=== PATIENT | male | born 1955 | race Caucasian/White ===

== ENCOUNTER → 2016-04-29 | Outpatient (CLI) | payer OTHER ==
[~2016-04-29] MED LIST: ASPIR 8181 MG PO; ATORVASTATIN CA40 MG PO; CENTRUM SILVER1 EAC2 PO; FERREX 150 PLU1 EAC1 PO; LISINOPRIL2.5 MG PO; LOPRESSOR25 PO; MAGNESIUM OXID400 MG PO; NASACORT10.8 ML NS; ONDANSETRON HCL4 M2 PO; PROBIOTIC1 EAC1 PO; TOPROL XL25 MG PO; VENTOLIN HFA 1818 GM INH; ZYRTEC10 MG PO
--- NOTE | ~2016-04-29 | 2DMMODE ---
[facility] [place] [address] 2 D/M-MODE ECHOCARDIOGRAM Name: DIRK ELLIOTT Room #: REG CL Clara#: [id number] Admission: 04/29/16 Attend Phys: Rolf Gordon MD Discharge: Date of : 59 Date of Service: 04/29/16 1319 Report #: [id number] THIS REPORT FOR: //name// Transthoracic Echocardiography Ordering physician: Rolf Gordon Referring physician: Nunu Stoner M.D., F.A.C.C. Rolf Gordon Turnstile Collector: ALLEN Barroso Indications/History: CAD. BP: 122 / HR: 59bpm Height: 67in Weight: 169.6lb 86 Study data: M-mode, complete 2D, complete spectral Doppler, and color Doppler. Location: Echo laboratory. Routine. Image quality was good. 2D measurements Normal Normal LVID ED 49.7mm 36-57 IVS ED 10.4mm 6-11 LVID ES 36.9mm 23-40 LVPW ED 10.1mm 6-11 LA volume 37ml/m2 16-28 AoRoot diam 29.5mm 21-37 index ED LVOT diameter 21mm 18-23 Findings: Left ventricle: The cavity size was normal. Wall thickness was normal. Systolic function was normal. The estimated ejection fraction was in the range of 55% to 60%. Regional wall motion abnormalities: Hypokinesis of the basal inferior myocardium. Right ventricle: The cavity size was normal. Systolic function was normal. Right atrium: The atrium was normal in size. Left atrium: The atrium was mildly dilated. Volume index: 37ml/m2 (S). Aortic valve: Structurally normal valve. [place]. [address] [address] 2 D/M-MODE ECHOCARDIOGRAM Name: DIRK ELLIOTT Room #: REG ADAMARIS Avila#: [id number] Admission: 04/29/16 Attend Phys: Rolf Gordon MD Discharge: Date of : 59 Date of Service: 04/29/16 1319 Report #: [id number] Doppler: There was no stenosis. No regurgitation. Peak velocity: 148cm/s (S). Mitral valve: Structurally normal valve. Doppler: There was no evidence for stenosis. Mild regurgitation. Peak E-wave velocity: 117.1cm/s. Peak gradient: 5.5mm Hg (D). Peak A-wave velocity: 99.3cm/s. Tricuspid valve: Structurally normal valve. Doppler: There was no evidence for stenosis. Mild regurgitation. Regurgitant peak velocity: 255.9cm/s. Peak RV-RA gradient: 26mm Hg (S). Pulmonic valve: Structurally normal valve. Doppler: There was no evidence for stenosis. Trivial regurgitation. Pericardium: There was no pericardial effusion. Aorta: Aortic root: The aortic root was normal in size. Pulmonary artery: Systolic pressure was estimated to be 31mm Hg. Diastolic function: Normal diastolic function. Systemic veins: Inferior vena cava: The vessel was normal in size; the respirophasic diameter changes were in the normal range (= 50%). Conclusions 1. Left ventricle: Systolic function was normal. The estimated ejection fraction was in the range of 55% to 60%. 2. Regional wall motion abnormality: Hypokinesis of the basal inferior myocardium. 3. Aortic valve: There was no stenosis. No regurgitation. 4. Mitral valve: Mild regurgitation. <ELECTRONICALLY SIGNED> By: Norbert Larry MD, [facility] 04/29/16 144 1319 144 Norbert Larry MD, [facility] /jacob
== END ==
LOC: ULTRA 13:02
DX: Z01.818 Encounter for other preprocedural examination (principal); Z95.1 Presence of aortocoronary bypass graft

== ENCOUNTER 2016-05-02 06:18 | Inpatient (IN) | payer OTHER ==
[2016-04-29 09:31] LABS: HEMATOCRIT 42.9 % (42.0-52.0); HEMOGLOBIN 14.7 gm/dL (14.0-18.0); MCH 29.8 pg (26.0-34.0); MCHC 34.2 % (28.0-37.0); MCV 87.2 fL (80.0-100.0); RBC 4.92 mil/uL (4.50-6.00); RDW 13.7 % (10.5-14.5); WBC 8.2 thou/uL (4.0-11.0)
[2016-04-29 09:33] LABS: URINE BILIRUBIN NEGATIVE (Negative); URINE BLOOD NEGATIVE (Negative); URINE COLOR YELLOW; URINE GLUCOSE-RANDOM* NEGATIVE (Negative); URINE KETONES NEGATIVE (Negative); URINE LEUKOCYTES-REFLEX TRACE (Negative); URINE PROTEIN (DIPSTICK) NEGATIVE (Negative); URINE SPECIFIC GRAVITY <= 1.005 (1.003-1.035); URINE UROBILINOGEN 0.2 E.U./dl (0.2-1.0)
[2016-04-29 09:40] LABS: CALCIUM 8.7 mg/dL (8.5-10.1); CREATININE 0.9 mg/dL (0.6-1.3); POTASSIUM 4.7 mmol/L (3.5-5.1)
[2016-04-29 09:48] LABS: APTT 26.1 Seconds (24.5-32.8); PROTIME 10.7 Seconds (9.3-11.4)
[~2016-05-02] VITALS: Ht 170.2 cm; Wt 76.9 kg
--- NOTE | ~2016-05-02 | EKG ---
[address] [place] [address] ELECTROCARDIOGRAM REPORT Name: DIMITRIOSPAOLARoqueDIRK Room #: 208-P ADM IN M.R.#: [id number] Admission: 05/02/16 Attend Phys: Rolf Gordon MD Discharge: Date of : 59 Report #: [id number] THIS REPORT FOR: //name// [facility] Test Date: 2016-05-02 Test Time: 15:35:46 Pat Name: DIRK ELLIOTT Department: Room: 208 Gender: M Daycare Provider: Lani MATT : 1955 Requested By: Michael Alarcon Order Number: [id number] MD: Yossi Abad Measurements Intervals [place] Rate: 80 P: 35 DC: 130 QRS: 61 QRSD: 111 T: -54 QT: 394 QTc: 455 Interpretive Statements Sinus rhythm Inferior infarct, age indeterminate Compared to ECG 04/29/2016 10:03:19 Sinus bradycardia no longer present Lateral T wave abnormality no longer present Electronically Signed On 05-04-2016 14:03:50 VICTIMS ADVOCATE CLERK/SPECIALIST by Yossi Abad [email or web address] <ELECTRONICALLY SIGNED> By: Yossi Abad MD, [facility] 05/04/16 1403 1535 1535 Yossi Abad MD, [facility] /EPI
--- NOTE | ~2016-05-02 | O ---
[facility] [place] [address] OPERATIVE REPORT Name: DIRK ELLIOTT Room #: 208-P ADM IN M.R.#: [id number] Admission: 05/02/16 Attend Phys: Rolf Gordon MD Discharge: Date of : 59 Report #: [id number] THIS REPORT FOR: //name// CC: uNnu Gordon DATE OF SERVICE: 05/02/2016 PREOPERATIVE DIAGNOSIS: Coronary artery disease. POSTOPERATIVE DIAGNOSIS: Coronary artery disease. OPERATION: Coronary artery bypass x 6 including left internal mammary artery to left anterior descending artery, saphenous vein to diagonal, ramus intermedius and marginal and saphenous vein to posterior descending and posterolateral branch and endoscopic harvest, left greater saphenous vein. SURGEON: Rolf Gordon M.D. GROUND INSTRUCTOR BASIC: Dorian. ANESTHESIA: General. INDICATIONS: The patient is a 60-year-old with coronary artery disease. The patient presented with transient visual problems and the patient was ultimately found to have coronary artery disease. Left ventricular function is satisfactory with severe 3-vessel coronary artery disease. FINDINGS AND TECHNIQUE: After general anesthesia was established, saphenous vein was harvested using an endoscopic approach and prepared for use as a conduit. Exposure was obtained through median sternotomy. Left internal mammary artery was harvested. Pericardial well was made. Cannulation sutures were placed. Heparin was given. Aorta was cannulated. Right atrium was cannulated. Cardioplegia needle was positioned in the aortic root. Retrograde cardioplegic catheter was placed in the coronary sinus. Cardiopulmonary bypass was established. The aorta was cross clamped, antegrade and retrograde cardioplegia were given. Ice was poured in the pericardial well. The heart was stopped. During electromechanical arrest, the distal anastomoses were performed and end-to-side anastomosis was made between vein and the posterolateral branch, it was not clear whether this was an extension of the distal circumflex of the right coronary, either angiographically or by inspecting the heart, cold cardioplegia was given. Same segment of vein was sewn in end-to-side fashion to posterior descending artery. This was clearly a distal branch from the right [facility] [address] [place] [address] OPERATIVE REPORT Name: DIRK ELLIOTT Room #: 208-P ADM IN M.R.#: [id number] Admission: 05/02/16 Attend Phys: Rolf Gordon MD Discharge: Date of : 59 Report #: [id number], but it emanated a bit early from the right coronary and traversed to the distal septum. Cold cardioplegia was given. A separate segment of vein was sewn in end-to-side fashion to the marginal artery. Cold cardioplegia was given. Same segment of vein was sewn in end-to-side fashion to the ramus intermedius. Cold cardioplegia was given. Same segment of vein was sewn in end-to-side fashion to a diagonal artery. Cold cardioplegia was given. Left internal mammary artery was sewn in end-to-side fashion to left anterior descending artery. Patency of this vessel was checked with the temperature technique. Cold cardioplegia was given. Two proximal anastomoses were performed. These were complete, warm retrograde cardioplegia was given followed by warm continuous blood to the coronary sinus. When this infusion was complete, the crossclamp was removed, de-airing maneuvers were performed. The anastomoses were inspected and found to be satisfactory. As the patient warmed, nice cardiac activity resumed, chest tubes and pacing wires were placed, a marker was placed around the proximal anastomoses. When the patient was warmed, he was weaned from cardiopulmonary bypass, venous cannula was removed. Protamine was given, the aortic cannula was removed. Flows were measured in the bypass grafts. Flow in the graft to the right side of vessels was 31 mL per minute. Flow in the graft to the left side was 45 mL per minute. A good Doppler signal was audible in the internal mammary artery. Total cross clamp time was 122 minutes, total pump time was 156 minutes. When hemostasis was satisfactory, chest was irrigated with antibiotic solution and closed in the usual fashion. The patient was taken to the Intensive Care Unit in good condition having tolerated the procedure well. All counts reported as correct. <ELECTRONICALLY SIGNED> By: Rolf Gordon MD 05/04/16 1024 00 0055 Rolf Gordon MD /nt
--- NOTE | ~2016-05-02 | EKG ---
[address] [address] ELECTROCARDIOGRAM REPORT Name: DIRK ELLIOTT Room #: 208-P ADM IN M.R.#: [id number] Admission: 05/02/16 Attend Phys: Rolf Gordon MD Discharge: Date of : 59 Report #: [id number] THIS REPORT FOR: //name// [facility] Test Date: 2016-05-06 Test Time: 06:32:59 Pat Name: DIRK ELLIOTT Department: Room: 208 P Gender: M Tester/Lift Trucker: luis felipe : 1955 Requested By: Rolf Gordon Order Number: [id number] MD: Hong Finn Measurements Intervals [place] Rate: 74 P: 31 CT: 123 QRS: 22 QRSD: 119 T: -42 QT: 415 QTc: 461 Interpretive Statements Sinus rhythm Nonspecific intraventricular conduction delay Inferior infarct, age indeterminate Borderline ST elevation, anterior leads Electronically Signed On 05-06-2016 8:23:51 WASH HOUSE SUPERVISOR by Hong Finn [email or web address] <ELECTRONICALLY SIGNED> By: Hong Finn MD 05/06/16 0823 D: 01631 1 Hong Finn MD /PRITI
--- NOTE | ~2016-05-02 | EKG ---
[address] [address] ELECTROCARDIOGRAM REPORT Name: DIMITRIOSPAOLARoqueDIRK Room #: 208-P ADM IN M.R.#: [id number] Admission: 05/02/16 Attend Phys: Rolf Gordon MD Discharge: Date of : 59 Report #: [id number] THIS REPORT FOR: //name// [facility] Test Date: 2016-05-03 Test Time: 07:37:10 Pat Name: DIRK ELLIOTT Department: Room: 208 Gender: M Home Health Registered Nurse: CHRIS : 1955 Requested By: Michael Alarcon Order Number: [id number] MD: Yossi Abad Measurements Intervals [place] Rate: 83 P: 19 [place]: 130 QRS: -1 QRSD: 109 T: -30 QT: 381 QTc: 448 Interpretive Statements Sinus rhythm Abnormal R-wave progression, early transition Left ventricular hypertrophy Inferior infarct, age indeterminate Nonspecific ST-T wave abnormality Compared to ECG 04/29/2016 10:03:19 No significant change was found Electronically Signed On 05-04-2016 14:15:01 VOICE OVER ANNOUNCER by Yossi Abad [email or web address] <ELECTRONICALLY SIGNED> By: Yossi Abad MD, [facility] 05/04/16 1415 0737 Yossi Abad MD, [facility] /EPI
--- NOTE | ~2016-05-02 | EKG ---
[address] [address] ELECTROCARDIOGRAM REPORT Name: DIRK ELLIOTT Room #: PRE IN ..#: [id number] Admission: Attend Phys: Rolf Gordon MD Discharge: Date of : 59 Report #: [id number] THIS REPORT FOR: //name// [facility] Test Date: 2016-04-29 Test Time: 10:03:19 Pat Name: DIRK ELLIOTT Department: Room: Gender: Clerk Specialist: samuel : 1955 Requested By: Rolf Gordon Order Number: [id number] : Hong Finn Measurements Intervals [place] Rate: 49 P: 31 NV: 132 QRS: 59 QRSD: 117 T: -30 QT: 441 QTc: 399 Interpretive Statements Sinus bradycardia Nonspecific intraventricular conduction delay Inferior infarct, age indeterminate Borderline ST elevation, anterior leads No previous ECG available for comparison Electronically Signed On 04-29-2016 14:58:13 INDUSTRIAL CONTROLS TECHNICIAN by Hong Finn [email or web address] <ELECTRONICALLY SIGNED> By: Hong Finn MD 04/29/16 1458 1003 1003 Hong Finn MD /PRITI
--- NOTE | ~2016-05-02 | HC ---
[facility] [place] [address] CONSULTATION Name: EARLDIRK Yamel Room #: 208-P [facility] IN M.R.#: [id number] Admission: 05/02/16 Attend Phys: Rolf Gordon MD Discharge: 05/06/16 Date of : 59 Report #: [id number] THIS REPORT FOR: //name// CC: Nunu Gordon TYPE OF REPORT: Inpatient consultation. PRIMARY CARE PHYSICIAN: Nunu Stoner D.O. PORCELAIN FINISHER: Norbert Larry M.D., F.A.C.C.. REQUESTING PHYSICIAN: Rolf Gordon M.D. CHIEF COMPLAINT: CABG. HISTORY OF PRESENT ILLNESS: The patient is a 60-year-old patient of mine, who was diagnosed with coronary artery disease as an outpatient. He initially had presented with ocular symptoms and possible TIA workup. Ultimately though based on his cardiovascular risk factors, he had an abnormal stress test. His transient visual field defect had resolved. Clinically, he has no visual symptoms. He was found to have multivessel coronary disease in chronic occlusion of the right coronary artery and underwent a successful elective bypass graft surgery. He had past medical risk factors including a family history of heart disease, tobaccoism and hyperlipidemia. ALLERGIES: PENICILLIN. MEDICATIONS: Presently, he is on amiodarone, aspirin and IV fluids. SOCIAL HISTORY: As above. He was a smoker. FAMILY HISTORY: Positive for coronary artery disease. PAST SURGICAL HISTORY: Had oral surgery in the late 1970s. REVIEW OF SYSTEMS: CARDIOVASCULAR: He had not been having chest pain. He did have shortness of breath, which was felt to be an anginal equivalent. NEUROLOGICAL: Denies any slurred speech, extremity numbness or weakness. EYES: He had visual changes and ultimately, his carotid Doppler showed only mild plaquing. HEMATOLOGIC: No anemia or bleeding disorders. RENAL: No history of kidney failure. [facility] [address] [place] [address] CONSULTATION Name: DIRK ELLIOTT Room #: 208-P [facility] IN .Yamel.#: [id number] Admission: 05/02/16 Attend Phys: Rolf Gordon MD Discharge: 05/06/16 Date of : 59 Report #: [id number] ENDOCRINE: He is not known to be a diabetic. Positive hyperlipidemia. CARDIOVASCULAR: As above. MUSCULOSKELETAL: No joint pain or swelling. PHYSICAL EXAMINATION: GENERAL: No fevers or chills. VITAL SIGNS: In the ICU, blood pressure is 110/70 with sinus rhythm, 80s to 90s. He is on a ventilator and the sats are 100%. HEENT: Intubated. ET tube is secured to the patient. NEUROLOGICAL: The patient tracks with his eyes and follows commands. NECK: There is no jugular venous distention. CARDIOVASCULAR: Regular. There is no murmur. SKIN: He has a clean dry dressing of his sternal region without any significant erythema or active bleeding. NEUROLOGICAL: There are no focal deficits. ABDOMEN: Soft and nontender. EXTREMITIES: Distal extremities are warm. Pulses, radial and dorsalis pedis pulses are +2 and symmetric throughout. RADIOLOGICAL DATA: His ECG demonstrates a sinus rhythm with Q-waves in the inferior leads, which was present on previous studies with T-wave inversion in the inferior leads only with normal ST segments, otherwise and rate is 80. LABORATORY DATA: Other lab data: Hemoglobin was 13.0; white blood cell count is 18.5 and platelet count is 140,000. INR is 1.0 and PTT was 26.1. ABG: pH was 7.331, pCO2 of 36 and pO2 146. IMPRESSION AND PLAN: 1. Coronary artery disease, status post coronary artery bypass graft. He received a 6-vessel coronary artery bypass graft with a left internal mammary artery to left anterior descending, saphenous vein graft to diagonal, ramus intermedius and marginal and saphenous vein graft to posterior descending artery and posterolateral branch. Historically, he has a history preserved left ventricular systolic function with inferior wall motion abnormality, which hopefully will improve with full revascularization. We will continue with routine postoperative cardiovascular care. We will continue with amiodarone for atrial fibrillation prophylaxis. 2. Tobacco abuse. Cessation will be recommended and we will consult cardiac rehabilitation. 3. Dyslipidemia. He will be treated with statin. <ELECTRONICALLY SIGNED> By: Norbert Larry MD, FACC 05/09/16 1145 1632 0019 Norbert Larry MD, FACC /nt
--- NOTE | ~2016-05-02 | HC ---
[facility] [place] [address] CONSULTATION Name: DIRK ELLIOTT Room #: 240-P ADM IN M.R.#: [id number] Admission: 05/02/16 Attend Phys: Rolf Gordon MD Discharge: Date of : 59 Report #: [id number] THIS REPORT FOR: //name// CC: Nunu Gordon DATE OF SERVICE: 05/02/2016 Consult has been requested for management of hyperlipidemia and hyperglycemia. The patient is presently intubated. The patient is status post CABG. History was primarily obtained from reviewing the notes in the chart. The patient underwent CABG x6, CALL[place]AY to LAD, AO to diagonal ramus in the margins, AO to PD and PLB. The patient also underwent an endoscopic harvesting of the left greater saphenous vein. The patient is awake on the ventilator. He is still intubated. He follows simple commands. The patient is a 60-year-old male with history of tobacco abuse in the past, hyperlipidemia, hyperglycemia, underwent a nuclear stress test, which was moderate to high risk study, which showed inferior defect within the leslie-infarct ischemia with reduced ejection fraction. He underwent an echocardiogram in 05/13, which showed EF of 55% to 60%, regional wall motion abnormality. He underwent a cardiac catheterization on 04/17/2016, which showed preserved left ventricular function, multivessel coronary artery disease manifested by high-grade stenosis on the mid circumflex, LAD vessel as well as occluded and collateralized right coronary artery. The patient was seen by Dr. Gordon and the patient underwent CABG x6, the patient is seen postoperatively. PAST MEDICAL HISTORY: Significant for tobacco use, hyperlipidemia, hyperglycemia. He has had a carotid study in 03/02, which showed no significant disease. HOME MEDICATIONS: Prior to this was Zyrtec and Nasacort. ALLERGIES: PENICILLIN. FAMILY HISTORY: Unable to obtain from the patient at present. REVIEW OF SYSTEMS: Unable to obtain from the patient. SOCIAL HISTORY: According to the previous chart, he was smoking. PHYSICAL EXAMINATION: VITAL SIGNS: Reviewed. The patient is presently on the ventilator. His blood pressure 140/72. Heart rate is 55 per minute, afebrile. [facility] [address] [place] [address] CONSULTATION Name: DIRK ELLIOTT Room #: 240-P [facility] IN M.R.#: [id number] Admission: 05/02/16 Attend Phys: Rolf Gordon MD Discharge: Date of : 59 Report #: [id number] GENERAL: Awake and alert, follows simple commands. EYES: Pupils equal, reactive to light. THROAT: He has a ET tube in place. NECK: No JVD, no bruit, no lymphadenopathy. CARDIOVASCULAR: S1 and S2, negative S3, no murmur. CHEST: Bilateral air entry present. Clear to auscultation. ABDOMEN: Soft, bowel sounds present, no mass, no organomegaly, no tenderness. PERIPHERY: No pedal edema. No calf tenderness. Dorsalis pedis 1+. NEUROLOGIC: He is awake and alert, on the vent. LABORATORY DATA: His white count is ____, hemoglobin is 13, hematocrit is 35, platelet is 140. Chemistry showed blood glucose of 114, BUN and creatinine are 11 and 0.6. Coagulation studies are normal PT, PTT on 04/29. Last blood gas 02:50 p.m. today showed a pH of 7.331, pCO2 of 36, pO2 of 145. ____ shows UA negative, trace leukocyte esterase. IMAGING: Chest x-ray today showed tubes and catheters in place. Status post CABG. ASSESSMENT AND PLAN: 1. Status post coronary artery bypass graft, postoperative course as pre Dr. Gordon. Weaning from the vent as per Dr. Gordon. 2. Mild hypertriglyceridemia. We will go ahead and check an A1c level. We will also place him on a sliding scale insulin. 3. Leukocytosis. We will repeat UA and also repeat his labs in the morning. 4. History of dyslipidemia in the past. His lipids were checked on 04/17, he had an LDL of 125 and cholesterol of 195, probably needs statins postoperatively. 5. Deep venous thrombosis prophylaxis as per Dr. Gordon. Treatment plan was discussed with the nursing staff in detail. <ELECTRONICALLY SIGNED> By: Berny Sprague MD 05/03/16 1146 1607 0023 Berny Sprague MD /nt
--- NOTE | ~2016-05-02 | H ---
[facility] [address] [address] HISTORY AND PHYSICAL Name: DIRK ELLIOTT Room #: 208-P [facility] IN M.R.#: [id number] Admission: 05/02/16 Attend Phys: Rolf Gordon MD Discharge: 05/06/16 Date of : 59 Report #: [id number] THIS REPORT FOR: //name// For History and Physical, please see office documentation/handwritten note in the patient's medical record. <ELECTRONICALLY SIGNED> By: Rolf Gordon MD 05/19/16 1224 1545 Rolf Gordon MD /
[~2016-05-02 06:18] MED LIST changes: -FERREX 150 PLU1 EAC1 PO; -LOPRESSOR25 PO; -ONDANSETRON HCL4 M2 PO
[2016-05-02 07:30] VITALS: BP 140/72
[2016-05-02 14:28] LABS: POC BE 0 mmol/L (-2.0 to +3.0); POC CA IONIZED 4.4 mg/dL (4.5-5.3); POC FiO2 100 %; POC GLUCOSE 149 mg/dL (70-99); POC HCO3 25.8 mmol/L (22.0-26.0); POC HEMOGLOBIN 9.2 gm/dL (14.0-18.0); POC POTASSIUM 4.7 mmol/L (3.5-5.1); POC SODIUM 134 mmol/L (136-145); POC pCO2 45.4 mmHg (35.0-45.0); POC pH 7.362 (7.360-7.450)
[2016-05-02 14:28] LABS: POC BE 1 mmol/L (-2.0 to +3.0); POC CA IONIZED 4.4 mg/dL (4.5-5.3); POC FiO2 100 %; POC GLUCOSE 145 mg/dL (70-99); POC HCO3 25.9 mmol/L (22.0-26.0); POC HEMOGLOBIN 9.9 gm/dL (14.0-18.0); POC POTASSIUM 4.8 mmol/L (3.5-5.1); POC SODIUM 136 mmol/L (136-145); POC pCO2 44.4 mmHg (35.0-45.0); POC pH 7.374 (7.360-7.450)
[2016-05-02 14:28] LABS: POC BE 1 mmol/L (-2.0 to +3.0); POC CA IONIZED 4.3 mg/dL (4.5-5.3); POC FiO2 85 %; POC GLUCOSE 141 mg/dL (70-99); POC HCO3 25.6 mmol/L (22.0-26.0); POC HEMOGLOBIN 9.9 gm/dL (14.0-18.0); POC SODIUM 135 mmol/L (136-145); POC pH 7.384 (7.360-7.450)
[2016-05-02 14:28] LABS: POC BE -3 mmol/L (-2.0 to +3.0); POC CA IONIZED 5.5 mg/dL (4.5-5.3); POC FiO2 100 %; POC GLUCOSE 132 mg/dL (70-99); POC HCO3 22.8 mmol/L (22.0-26.0); POC HEMOGLOBIN 9.2 gm/dL (14.0-18.0); POC SODIUM 136 mmol/L (136-145); POC pCO2 41.9 mmHg (35.0-45.0); POC pH 7.344 (7.360-7.450)
[2016-05-02 14:28] LABS: POC BE -4 mmol/L (-2.0 to +3.0); POC CA IONIZED 4.5 mg/dL (4.5-5.3); POC FiO2 100 %; POC GLUCOSE 120 mg/dL (70-99); POC HCO3 22.8 mmol/L (22.0-26.0); POC HEMOGLOBIN 11.2 gm/dL (14.0-18.0); POC POTASSIUM 4.7 mmol/L (3.5-5.1); POC SODIUM 136 mmol/L (136-145); POC pCO2 45.8 mmHg (35.0-45.0); POC pH 7.305 (7.360-7.450)
[2016-05-02 14:28] LABS: POC BE 0 mmol/L (-2.0 to +3.0); POC CA IONIZED 4.7 mg/dL (4.5-5.3); POC FiO2 100 %; POC GLUCOSE 155 mg/dL (70-99); POC HCO3 25.5 mmol/L (22.0-26.0); POC HEMOGLOBIN 13.3 gm/dL (14.0-18.0); POC POTASSIUM 4.8 mmol/L (3.5-5.1); POC SODIUM 134 mmol/L (136-145); POC pCO2 46.4 mmHg (35.0-45.0); POC pH 7.348 (7.360-7.450)
[2016-05-02 14:28] LABS: POC BE 0 mmol/L (-2.0 to +3.0); POC CA IONIZED 4.4 mg/dL (4.5-5.3); POC FiO2 100 %; POC GLUCOSE 123 mg/dL (70-99); POC HCO3 26.2 mmol/L (22.0-26.0); POC HEMOGLOBIN 11.2 gm/dL (14.0-18.0); POC POTASSIUM 4.7 mmol/L (3.5-5.1); POC SODIUM 135 mmol/L (136-145); POC pCO2 49.6 mmHg (35.0-45.0); POC pH 7.332 (7.360-7.450)
[2016-05-02 14:28] LABS: POC BE 0 mmol/L (-2.0 to +3.0); POC CA IONIZED 4.4 mg/dL (4.5-5.3); POC FiO2 85 %; POC GLUCOSE 126 mg/dL (70-99); POC HCO3 25.1 mmol/L (22.0-26.0); POC HEMOGLOBIN 9.9 gm/dL (14.0-18.0); POC POTASSIUM 4.6 mmol/L (3.5-5.1); POC SODIUM 132 mmol/L (136-145); POC pCO2 45.1 mmHg (35.0-45.0); POC pH 7.354 (7.360-7.450)
[2016-05-02 14:28] LABS: POC BE 1 mmol/L (-2.0 to +3.0); POC CA IONIZED 4.8 mg/dL (4.5-5.3); POC FiO2 100 %; POC GLUCOSE 139 mg/dL (70-99); POC HCO3 26.3 mmol/L (22.0-26.0); POC HEMOGLOBIN 12.9 gm/dL (14.0-18.0); POC POTASSIUM 4.4 mmol/L (3.5-5.1); POC SODIUM 135 mmol/L (136-145); POC pCO2 47.2 mmHg (35.0-45.0); POC pH 7.354 (7.360-7.450)
[2016-05-02 14:43] LABS: HEMATOCRIT 38.5 % (42.0-52.0); MCH 29.7 pg (26.0-34.0); MCHC 33.9 % (28.0-37.0); MCV 87.6 fL (80.0-100.0); RBC 4.4 mil/uL (4.50-6.00); RDW 13.4 % (10.5-14.5); WBC 18.5 thou/uL (4.0-11.0)
[2016-05-02 14:56] LABS: CREATININE 0.6 mg/dL (0.6-1.3); POTASSIUM 4.4 mmol/L (3.5-5.1)
[2016-05-02 14:58] LABS: ABG SAMPLE TYPE ARTERIAL; BE(vivo) -6.3 mmol/L (-2 to +3); HCO3 18.9 mmol/L (22.0-26.0); O2(CT) 18.2 mL/dL (15.0-23.0); O2Hb 97.7 % (92.0-98.0); PCO2 36.6 mmHg (35.0-45.0); PO2 145.7 mmHg (80.0-100.0); STICK SITE LINE; TIDAL VOLUME 600 ml; pH 7.331 (7.360-7.450); sO2 98.7 % (92.0-98.0)
[2016-05-02 17:52] LABS: ABG SAMPLE TYPE ARTERIAL; BE(vivo) -5.1 mmol/L (-2 to +3); LACTATE 0.88 mmol/L (0.5-2.0); O2(CT) 17.4 mL/dL (15.0-23.0); O2Hb 97.6 % (92.0-98.0); PCO2 37.7 mmHg (35.0-45.0); PO2 150.5 mmHg (80.0-100.0); pH 7.343 (7.360-7.450); sO2 98.8 % (92.0-98.0); tCO2 21.2 mmol/L (24.0-30.0)
[2016-05-02 17:53] LABS: Pressure Support 8 cm H20; STICK SITE LINE
[2016-05-02 18:49] LABS: ABG SAMPLE TYPE ARTERIAL; BE(vivo) -4.5 mmol/L (-2 to +3); Face Shield 40 %; HCO3 20.8 mmol/L (22.0-26.0); O2(CT) 17.1 mL/dL (15.0-23.0); O2Hb 96.4 % (92.0-98.0); PCO2 39.4 mmHg (35.0-45.0); PO2 102.6 mmHg (80.0-100.0); STICK SITE LINE; pH 7.341 (7.360-7.450); sO2 97.4 % (92.0-98.0)
[2016-05-02 19:14] LABS: HEMATOCRIT 35.6 % (42.0-52.0); HEMOGLOBIN 12.3 gm/dL (14.0-18.0); MCH 30.1 pg (26.0-34.0); MCHC 34.5 % (28.0-37.0); MCV 87.2 fL (80.0-100.0); RBC 4.08 mil/uL (4.50-6.00); RDW 13.4 % (10.5-14.5); WBC 19.3 thou/uL (4.0-11.0)
[2016-05-02 19:24] LABS: CALCIUM 8.1 mg/dL (8.5-10.1); CREATININE 0.8 mg/dL (0.6-1.3); POTASSIUM 4.7 mmol/L (3.5-5.1)
[2016-05-02 20:00] VITALS: BP 117/66
[2016-05-02 21:26] LABS: URINE BILIRUBIN NEGATIVE (Negative); URINE BLOOD 3+ (Negative); URINE COLOR YELLOW; URINE GLUCOSE-RANDOM* NEGATIVE (Negative); URINE KETONES 1+ (Negative); URINE LEUKOCYTES-REFLEX NEGATIVE (Negative); URINE PROTEIN (DIPSTICK) NEGATIVE (Negative); URINE SPECIFIC GRAVITY >= 1.030 (1.003-1.035); URINE UROBILINOGEN 0.2 E.U./dl (0.2-1.0)
[2016-05-02 21:32] LABS: CRYSTALS None Seen /LPF (None Seen); HYALINE CASTS 4-10 Moderate /LPF (None Seen); SQUAMOUS 0-3 Few /LPF (0-3); URINE RBC 3-10 Few /HPF (0-2); URINE WBC-REFLEX 0-5 Rare /HPF (0-5)
[2016-05-02 22:00] VITALS: BP 122/72
[2016-05-03] VITALS (9 sets, daily range): BP systolic 98–124; BP diastolic 54–92
[2016-05-03 02:06] LABS: GLYCOHEMOGLOBIN (HGB A1C) 5.6 % (4.8-5.6)
[2016-05-03 05:36] LABS: BASOPHILS 0.3 % (0.0-2.0); HEMATOCRIT 32.7 % (42.0-52.0); LYMPHOCYTES 5.2 % (24.0-44.0); MCHC 33.8 % (28.0-37.0); MCV 88.8 fL (80.0-100.0); MONOCYTES 8.8 % (1.0-8.0); PLATELET COUNT 162 thou/uL (150-400); POLYS 85.7 % (36.0-66.0); RBC 3.68 mil/uL (4.50-6.00); RDW 13.7 % (10.5-14.5)
[2016-05-03 05:46] LABS: CALCIUM 8.3 mg/dL (8.5-10.1); CREATININE 0.9 mg/dL (0.6-1.3); MAGNESIUM 2.1 mg/dL (1.8-2.4); POTASSIUM 4.2 mmol/L (3.5-5.1)
[2016-05-03 06:08] LABS: MANUAL DIFF NO
[2016-05-04 00:10] VITALS: BP 111/67
[2016-05-04 04:45] VITALS: BP 118/76
[2016-05-04 04:50] LABS: HEMATOCRIT 29.3 % (42.0-52.0); HEMOGLOBIN 10.3 gm/dL (14.0-18.0); MCH 30.4 pg (26.0-34.0); MCHC 35.1 % (28.0-37.0); MCV 86.6 fL (80.0-100.0); RBC 3.38 mil/uL (4.50-6.00); RDW 13.5 % (10.5-14.5); WBC 16.7 thou/uL (4.0-11.0)
[2016-05-04 05:04] LABS: ABG SAMPLE TYPE ARTERIAL; LACTATE 1.29 mmol/L (0.5-2.0); O2(CT) 14.2 mL/dL (15.0-23.0); O2Hb 91.4 % (92.0-98.0); PCO2 37.9 mmHg (35.0-45.0); PO2 62.5 mmHg (80.0-100.0); STICK SITE R.RADIAL; pH 7.438 (7.360-7.450); sO2 92.8 % (92.0-98.0); tCO2 26.2 mmol/L (24.0-30.0)
[2016-05-04 05:09] LABS: CALCIUM 8.7 mg/dL (8.5-10.1); CREATININE 0.8 mg/dL (0.6-1.3); POTASSIUM 4.3 mmol/L (3.5-5.1)
[2016-05-04 08:30] VITALS: BP 109/70
[2016-05-04 12:50] VITALS: BP 124/83
[2016-05-04 16:45] VITALS: BP 125/76
[2016-05-04 20:25] VITALS: BP 115/76
[2016-05-05 03:45] VITALS: BP 114/81
[2016-05-05 04:04] LABS: HEMOGLOBIN 9.9 gm/dL (14.0-18.0); MCH 29.8 pg (26.0-34.0); MCHC 34.2 % (28.0-37.0); MCV 87.1 fL (80.0-100.0); PLATELET COUNT 165 thou/uL (150-400); RBC 3.33 mil/uL (4.50-6.00); RDW 13.3 % (10.5-14.5); WBC 15.3 thou/uL (4.0-11.0)
[2016-05-05 04:32] LABS: MANUAL DIFF YES
[2016-05-05 06:36] LABS: ABSOLUTE NEUTROPHILS 13.2 thou/uL (1.4-8.2); TOTAL CELL COUNT 100
[2016-05-05 08:05] VITALS: BP 135/69
[2016-05-05 12:40] VITALS: BP 117/65
[2016-05-05 16:20] VITALS: BP 117/69
[2016-05-05 20:09] VITALS: BP 119/76
[2016-05-06 03:32] LABS: HEMOGLOBIN 9.1 gm/dL (14.0-18.0); MCH 29.7 pg (26.0-34.0); MCHC 33.6 % (28.0-37.0); MCV 88.2 fL (80.0-100.0); RBC 3.06 mil/uL (4.50-6.00); RDW 13.1 % (10.5-14.5); WBC 12.2 thou/uL (4.0-11.0)
[2016-05-06 03:38] LABS: CALCIUM 8.4 mg/dL (8.5-10.1); CREATININE 0.8 mg/dL (0.6-1.3); POTASSIUM 3.9 mmol/L (3.5-5.1)
[2016-05-06 03:48] VITALS: BP 110/69
[2016-05-06 07:45] VITALS: BP 122/73
[2016-05-06] MEDS ORDERED: ONDANSETRON HCL4 M2 PO (10:17)
[2016-05-06 12:05] VITALS: BP 110/72
[2016-05-06] MEDS ORDERED: FERREX 150 PLU1 EAC1 PO (13:15)
[2016-05-06] MEDS ORDERED: ATORVASTATIN CA40 MG PO (13:16)
[2016-05-06] MEDS ORDERED: LOPRESSOR25 PO (13:17)
[2016-05-06 14:11] VITALS: BP 122/73
[2016-05-06 17:19] VITALS: BP 122/73
== END 2016-05-06 15:00 | disposition home or self-care (01) | DRG 236 ==
LOC: PRE 06:18 → 2N 06:36 → TBA 06:36 → PRE 08:49 → ICU 14:46 → 2N 05-03 21:08
PROVIDERS: Internal Medicine; Physician Assistant; Surgery Vascular Surgery
DX: I25.10 Atherosclerotic heart disease of native coronary artery without angina pectoris (principal); E78.5 Hyperlipidemia, unspecified; D72.829 Elevated white blood cell count, unspecified; I10 Essential (primary) hypertension; K59.00 Constipation, unspecified; R73.9 Hyperglycemia, unspecified; F17.210 Nicotine dependence, cigarettes, uncomplicated; D64.9 Anemia, unspecified; K21.9 Gastro-esophageal reflux disease without esophagitis; I65.29 Occlusion and stenosis of unspecified carotid artery; E78.1 Pure hyperglyceridemia; Z88.0 Allergy status to penicillin; Z82.49 Family history of ischemic heart disease and other diseases of the circulatory system; Z79.82 Long term (current) use of aspirin; Z79.899 Other long term (current) drug therapy; Z98.890 Other specified postprocedural states; Z98.61 Coronary angioplasty status
CPT/HCPCS: 10078; 10081; 47000; 47001; 47002; 47297; 48888; 50010; 50249; 50409; 50456; 50498; 50668; 51301; 52131; 52259; 53327; 53358; 54118; 56524; 56525; 56526; 56527; 56528; 56531; 56534; 56660; 56805; 56898; 57093; 62110; 62950; 64029; 65002; 65020; 65043; 65090; 65120; 83006